=== PATIENT | male | born 1970 | race Caucasian/White ===

== ENCOUNTER 2017-09-12 13:18 | Emergency (ER) | payer OTHER ==
[2017-09-12 13:26] VITALS: BP 130/90; PULSE 70; TEMP 98; BMI 29.0
--- NOTE | 2017-09-12 14:03 | PDOC ---
History of Present Illness - General Chief Complaint: Pain, Acute Stated Complaint: RIGHT KNEE PAIN Time Seen by Provider: 09/12/17 14:03 History Source: Patient - History of Present Illness Initial Comments: 09/12/17 14:41 Patient is a 47 y.o. male with no PMH presents to our ED c/o resolved RLE pain. 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 Patient continued to climb stairs and states the pain resolved, however he presented to the ED for a concern of fluid collection above the knee. Patient denies any difficulty ambulating, numbness, tingling. Patient denies any chest pain, shortness of breath, abdominal pain, nausea/ vomiting, constipation/diarrhea. NKDA Surgical: R Arthroscopic knee ligament repair, R Tri malleolar fracture repair PMD: None - will refer to IM resident clinic Social: denies nicotine, 5-6 alcoholic drinks monthly, denies recreational drugs Past History - Past Medical History Allergies/Adverse Reactions: Allergies Allergy/AdvReac Type Severity Reaction Status Date / Time No Known Allergies Allergy Verified 09/12/17 15:27 Home Medications: Ambulatory Orders NK [No Known Home Medication] 09/12/17 COPD: No - Suicide/Smoking/Psychosocial Hx Smoking History: Never smoked Have you smoked in the past 12 months: No Information on smoking cessation initiated: No Hx Alcohol Use: No Drug/Substance Use Hx: No Substance Use Type: None Review of Systems - Review of Systems Constitutional: No: Chills, Fever HEENTM: No: Recent change in vision Respiratory: No: Shortness of Breath Cardiac (ROS): No: Chest Pain ABD/GI: No: Constipated, Diarrhea, Nausea, Vomiting : No: Burning, Dysuria *Physical Exam - Vital Signs Last Vital Signs Temp Pulse Resp BP Pulse Ox 98 F 70 13 130/90 100 09/12/17 13:20 09/12/17 13:20 09/12/17 13:20 09/12/17 13:20 09/12/17 13:20 - Physical Exam Comments: 09/12/17 15:04 GENERAL: The patient is awake, alert, and fully oriented, Nontoxic - in no acute distress. HEAD: Normocephalic, atraumatic. EYES: extraocular movements intact, sclera anicteric, conjunctiva clear. ENT: No pharyngeal erythema, no soot, Normal voice,moist mucosa, NECK: Normal range of motion, supple LUNGS: Breath sounds equal, clear to auscultation bilaterally, No wheezes, no rhonchi, no rales. HEART: Regular rate and rhythm, normal S1 and S2 without murmur, rub or gallop. ABDOMEN: Soft, nontender, normoactive bowel sounds.~ No guarding, no rebound.~ . No CVA tenderness EXTREMITIES: Full ROM of B/L LE, 2+ pedal pulses B/L, R suprapatellar fluid collection w/o appreciable erythema, warmth NEUROLOGICAL: No facial assumedly, Normal speech PSYCH: Normal mood, normal affect. SKIN: Warm, Dry, normal turgor 09/12/17 22:04 Medical Decision Making - Medical Decision Making 09/12/17 15:07 47 y.o. male who presents to ED with swelling over R patella. On PE patient is neurovasculary intact, non-ataxic/antalgic gait. As swelling primarily anterior - low clinical suspicion for Duke's cyst, will XR knee. Reasess. 09/12/17 17:12 Knee XR negative for effusion or fracture. Patient symptomatically improved with Toradol. Patient ambulatory, improved and affirmed understanding of follow -up care. Will discharge home with return precautions and orthopedic referral as patient has h/o of RLE ligament injury. Will also discharge patient with referral to resident clinic to establish primary care. *DC/Admit/Observation/Transfer Diagnosis at time of Disposition: Knee pain - Discharge Dispostion Disposition: HOME Condition at time of disposition: Good Admit: No - Referrals Referrals: Beka Mckenzie MD [Staff Physician] - Nick Tomlinson MD [Staff Physician] - - Patient Instructions Printed Discharge Instructions: DI for Knee Pain Additional Instructions: You can take NSAIDs for your pain. Please follow-up with orthopedic surgery for your knee pain. Also, a referral has been provided to a primary care physician, Dr. Davi Romero, please call to make an appointment and establish primary care. Return to the Emergency Department for any new/worsening/ concerning symptoms. - Post Discharge Activity
--- NOTE | 2017-09-12 14:38 | PDOC ---
Attending Attestation - HPI HPI: 09/12/17 15:19 The patient is a 47 year old male with no significant past medical history who presents to the ED with complaints of right lower extremity pain. 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 He states he is concerned for a fluid collection above the knee. Patient states the pain has since resolved. Denies fever or chills. Denies focal numbness, weakness or tingling. Denies chest pain or shortness of breath. Denies any other symptoms. Documentation prepared by Almita Sutton, acting as medical record specialist for Lexie Cuevas MD <Almita Sutton - Last Filed: 09/12/17 16:57> - Resident Resident Name: Valencia Durham - HPI HPI: I Dr. Lexie Cuevas attest that the documentation that appears above has been prepared under my direction and personally reviewed by me. I confirmed that the note above accurately reflects all work, treatment,procedures and medical decision -making performed by me. 09/13/17 01:08 - Physicial Exam PE: 09/13/17 01:11 pt seen and examined in ED. Pt in no acute distress at time of exam . 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
[2017-09-12] MEDS ORDERED: KETOROLAC TROMETHAMINE 15 MG/ML VIAL IVPUSH ONE (16:58)
== END 2017-09-12 17:10 | disposition home or self-care (01) ==
LOC: JER 13:18
DX: S89.81XA Other specified injuries of right lower leg, initial encounter (principal); X50.0XXA Overexertion from strenuous movement or load, initial encounter; Y93.01 Activity, walking, marching and hiking; Y92.89 Other specified places as the place of occurrence of the external cause; Y99.0 Civilian activity done for income or pay
CPT/HCPCS: 73562-TC-RT-FY; 99282-25